=== PATIENT | male | born 1995 | race Two or more races ===

== ENCOUNTER 2021-01-20 05:15 | Emergency (ER) | payer SELFPAY ==
[~2021-01-20] VITALS: Ht 167.6 cm; Wt 90.0 kg
[2021-01-20 05:53] LABS: BASOPHILS % (AUTO) 0.6 % (0.0-2.0); EOSINOPHILS % (AUTO) 1.9 % (1.0-6.0); HEMATOCRIT 46.4 % (41-53); HEMOGLOBIN 15.7 g/dL (13.5-17.5); LYMPHOCYTES # (AUTO) 4.1 K/uL (1.0-4.8); LYMPHOCYTES % (AUTO) 38.1 % (22.0-44.0); MEAN CORPUSCULAR HEMOGLOBIN 31.1 pg (26.0-34.0); MEAN CORPUSCULAR HGB CONC 33.9 G/dL (31.0-37.0); MEAN CORPUSCULAR VOLUME 92 fL (80-100); MONOCYTES # (AUTO) 0.7 K/uL (0.1-1.0); MONOCYTES % (AUTO) 6.4 % (2.0-9.0); NEUTROPHILS # (AUTO) 5.7 K/uL (1.8-7.7); PLATELET COUNT (AUTO) 421 K/uL (150-450); RED BLOOD CELL COUNT(AUTO) 5.06 MIL/uL (4.50-5.90); RED CELL DISTRIBUTION WIDTH 12.7 % (11.5-14.5)
[2021-01-20 06:03] LABS: ANION GAP 13 mmol/L (8-16); CALCIUM, TOTAL 8.8 mg/dL (8.8-10.5); CARBON DIOXIDE 25 mmol/L (22-29); CHLORIDE 103 mmol/L (98-107); CREATININE 0.76 mg/dL (0.60-1.30); GLOMERULAR FILTR. RATE CALC > 60 mL/min (>60); GLUCOSE,RANDOM 97 mg/dL (70-110); POTASSIUM 3.7 mmol/L (3.5-5.1); SODIUM SERUM 141 mmol/L (136-145); UREA NITROGEN, BLOOD 9 mg/dL (7-18)
[2021-01-20 06:09] LABS: ALANINE AMINOTRANSFERASE 62 U/L (12-78); ALKALINE PHOSPHATASE 95 U/L (46-116); ASPARTATE AMINOTRANSFERASE 27 U/L (15-37); BILIRUBIN,TOTAL 0.2 mg/dL (0.1-1.0); TOTAL PROTEIN, SERUM 8.3 g/dL (6.4-8.2)
[2021-01-20 06:43] LABS: ACETAMINOPHEN < 2 mcg/mL (10-30)
[2021-01-20 11:42] VITALS: BP 115/76
== END 2021-01-20 12:28 | disposition home or self-care (01) ==
LOC: EMS 05:16
DX: F19.951 Other psychoactive substance use, unspecified with psychoactive substance-induced psychotic disorder with hallucinations (principal); F10.129 Alcohol abuse with intoxication, unspecified; R45.851 Suicidal ideations; Y90.6 Blood alcohol level of 120-199 mg/100 ml
CPT/HCPCS: 36415; 80053; 85025; 99285; G0480; G0481

== ENCOUNTER 2024-03-04 14:35 | Inpatient (IN) | payer MEDICAID, OTHER ==
[~2024-03-04] VITALS: Ht 167.6 cm; Wt 79.4 kg
[2024-03-04 14:49] VITALS: O2SAT 98
[2024-03-04 21:02] LABS: BASOPHILS % (AUTO) 0.3 % (0.0-2.0); EOSINOPHILS % (AUTO) 1.6 % (1.0-6.0); HEMATOCRIT 43.5 % (41-53); HEMOGLOBIN 14.4 g/dL (13.5-17.5); LYMPHOCYTES # (AUTO) 1.9 K/uL (1.0-4.8); LYMPHOCYTES % (AUTO) 15.1 % (22.0-44.0); MEAN CORPUSCULAR HEMOGLOBIN 30.6 pg (26.0-34.0); MEAN CORPUSCULAR VOLUME 93 fL (80-100); MONOCYTES # (AUTO) 0.8 K/uL (0.1-1.0); MONOCYTES % (AUTO) 6.2 % (2.0-9.0); NEUTROPHILS # (AUTO) 9.9 K/uL (1.8-7.7); NEUTROPHILS % (AUTO) 76.8 % (40.0-70.0); PLATELET COUNT (AUTO) 377 K/uL (150-450); RED BLOOD CELL COUNT(AUTO) 4.69 MIL/uL (4.50-5.90); RED CELL DISTRIBUTION WIDTH 13.2 % (11.5-14.5); WHITE BLOOD COUNT (AUTO) 12.9 K/uL (4.5-11.0)
[2024-03-04 21:16] LABS: ANION GAP 15 mmol/L (8-16); CALCIUM, TOTAL 9.1 mg/dL (8.8-10.5); CARBON DIOXIDE 22 mmol/L (22-29); CHLORIDE 98 mmol/L (98-107); CREATININE 0.87 mg/dL (0.60-1.30); GLOMERULAR FILTR. RATE CALC > 60 mL/min (>60); GLUCOSE,RANDOM 122 mg/dL (70-110); POTASSIUM 3.4 mmol/L (3.5-5.1); SODIUM SERUM 135 mmol/L (136-145); UREA NITROGEN, BLOOD 14 mg/dL (7-18)
[2024-03-04 21:29] LABS: ALCOHOL, BLOOD (SERUM) < 3 mg/dL (0-10)
[2024-03-04 21:33] LABS: PH,URINE DRUG SCREEN 5.5 (5.0-8.0)
[2024-03-04 21:54] LABS: ALCOHOL, URINE DRUG SCREEN NEGATIVE (NEGATIVE); AMPHET/METH SCREEN,URINE POSITIVE (NEGATIVE); BARBITURATE SCREEN, URINE NEGATIVE (NEGATIVE); BENZODIAZEPINES SCREEN,URINE POSITIVE (NEGATIVE); CANNABINOID SCREEN,URINE POSITIVE (NEGATIVE); COCAINE SCREEN,URINE POSITIVE (NEGATIVE); METHADONE SCREEN, URINE NEGATIVE (NEGATIVE); OPIATE SCREEN,URINE NEGATIVE (NEGATIVE); PHENCYCLIDINE SCREEN,URINE NEGATIVE (NEGATIVE)
[2024-03-04 23:20] LABS: COVID AG,FIA SOURCE NASAL SWAB
[2024-03-04 23:26] LABS: SARS-COV2 (COVID) ANTIGEN,FIA Negative (Negative)
[2024-03-05] MEDS: LORazepam 2 MG TABLET PO PRN (11:28)
[2024-03-05 17:12] VITALS: BP 138/75; PULSE 86; RESP 17; TEMP 97.3; O2SAT 98
[2024-03-05] MEDS: ZOLPIDEM TARTRATE 10 MG TABLET PO PRN (21:18)
[2024-03-05] MEDS: HALOPERIDOL 5 MG TABLET PO PRN (21:18)
[2024-03-05 22:11] VITALS: RESP 18; TEMP 98.2
[2024-03-06] MEDS ORDERED: MAGNESIUM HYDROXIDE SUSPENSION 30 ML UDCUP PO PRN (07:15)
[2024-03-06] MEDS ORDERED: BACITRACIN 28 GM OINTMENT TP PRN (07:15)
[2024-03-06] MEDS ORDERED: LOPERAMIDE HCL 2 MG CAPSULE PO PRN (07:15)
[2024-03-06] MEDS ORDERED: DOCUSATE SODIUM 100 MG CAPSULE PO PRN (07:15)
[2024-03-06] MEDS ORDERED: MAG HYDROX/ALUMINUM HYD/SIMETH ES 30 ML SUSPENSION UDCUP PO PRN (07:15)
[2024-03-06] MEDS ORDERED: CloNIDine HCL 0.1 MG TABLET PO PRN (07:15)
[2024-03-06] MEDS ORDERED: ONDANSETRON 4 MG TABLET PO PRN (07:15)
[2024-03-06] MEDS ORDERED: IBUPROFEN 600 MG TABLET PO PRN (07:15)
[2024-03-06] MEDS ORDERED: OMEPRAZOLE 20 MG CAPSULE PO PRN (07:15)
[2024-03-06] MEDS ORDERED: ACETAMINOPHEN 325 MG TABLET PO PRN (07:15)
[2024-03-06] MEDS ORDERED: BENZOCAINE/MENTHOL LOZENGE PO PRN (07:15)
[2024-03-06] MEDS ORDERED: PETROLATUM,WHITE 28 GM JELLY TP PRN (07:15)
[2024-03-06] MEDS ORDERED: ALBUTEROL SULFATE HFA 90 MCG/PUFF 8 GM INHALER IH PRN (07:15)
[2024-03-06] MEDS: POTASSIUM CHLORIDE 20 MEQ ER TABLET PO ONE (07:44)
[2024-03-06 08:31] VITALS: BP 125/87; PULSE 83; RESP 18; TEMP 97.7; O2SAT 98
[2024-03-06 20:00] VITALS: BP 117/61; PULSE 66; RESP 18; TEMP 97.1; O2SAT 98
[2024-03-07 08:38] VITALS: BP 117/63; PULSE 63; RESP 19; TEMP 98; O2SAT 99
[2024-03-07 10:14] LABS: ANION GAP 12 mmol/L (8-16); CALCIUM, TOTAL 9.2 mg/dL (8.8-10.5); CARBON DIOXIDE 25 mmol/L (22-29); CHLORIDE 103 mmol/L (98-107); GLOMERULAR FILTR. RATE CALC > 60 mL/min (>60); GLUCOSE,RANDOM 117 mg/dL (70-110); POTASSIUM 3.7 mmol/L (3.5-5.1); SODIUM SERUM 140 mmol/L (136-145); UREA NITROGEN, BLOOD 7 mg/dL (7-18)
[2024-03-07 20:24] VITALS: BP 121/73; PULSE 70; RESP 18; TEMP 97.7
[2024-03-08 09:53] VITALS: BP 119/70; PULSE 67; RESP 17; TEMP 97.6; O2SAT 97
== END 2024-03-08 10:10 | disposition home or self-care (01) | DRG 775 ==
LOC: EMS 14:39 → 3EC 03-05 14:07
PROVIDERS: ADMIT Psychiatry & Neurology Psychiatry; ATTEND Psychiatry & Neurology Psychiatry
DX: F19.959 Other psychoactive substance use, unspecified with psychoactive substance-induced psychotic disorder, unspecified (principal); F10.129 Alcohol abuse with intoxication, unspecified; R45.851 Suicidal ideations; F32.9 Major depressive disorder, single episode, unspecified; G47.00 Insomnia, unspecified; F41.9 Anxiety disorder, unspecified; K59.00 Constipation, unspecified; M79.641 Pain in right hand; Z20.822 Contact with and (suspected) exposure to COVID-19; E87.6 Hypokalemia; Z59.00 Homelessness unspecified
CPT/HCPCS: 74018; 80048; 80307; 85025; 99291; G0480; 36415-L1; 36415-TC